=== PATIENT | female | born 1995 | race Caucasian/White ===

== ENCOUNTER 2021-05-22 08:19 | Emergency (ER) | payer BC, OTHER ==
[~2021-05-22] VITALS: Ht 152.4 cm; Wt 54.0 kg
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
[2021-05-22] MEDS ORDERED: HALOPERIDOL LACTATE INJ 5 MG/ML VIAL ONE (08:37)
[2021-05-22] MEDS ORDERED: diphenhydrAMINE HCL 50 MG/ML VIAL ONE (08:37)
[2021-05-22] MEDS ORDERED: LORAZEPAM INJ 2 MG/ML VIAL ONE (08:38)
[2021-05-22 09:00] LABS: BASOPHILS # (AUTO) 0.1 K/uL (0.0-0.2); BASOPHILS % (AUTO) 0.6 % (0.0-2.0); EOSINOPHILS % (AUTO) 0.6 % (0.0-6.0); HEMATOCRIT 35 % (33-45); HEMOGLOBIN 11.1 g/dL (11.5-14.8); LYMPHOCYTES # (AUTO) 3.1 K/uL (0.8-4.8); LYMPHOCYTES % (AUTO) 21.6 % (20.0-44.0); MEAN CORPUSCULAR HGB CONC 32 g/dl (31.0-36.0); MEAN CORPUSCULAR VOLUME 83 fL (82-100); MONOCYTES # (AUTO) 1.2 K/uL (0.1-1.30); MONOCYTES % (AUTO) 8.2 % (2.0-12.0); NEUTROPHILS # (AUTO) 9.9 K/uL (1.8-8.9); PLATELET COUNT (AUTO) 628 K/uL (150-450); RED BLOOD CELL COUNT(AUTO) 4.26 MIL/uL (4.0-5.2); WHITE BLOOD COUNT (AUTO) 14.3 K/uL (4.3-11.0)
[2021-05-22] MEDS ORDERED: IV NS 0.9% 500 ML BAG IV ONE (09:00)
[2021-05-22] MEDS ORDERED: diphenhydrAMINE HCL 50 MG/ML VIAL IM ONE (09:00)
[2021-05-22] MEDS ORDERED: LORAZEPAM INJ 2 MG/ML VIAL IM ONE (09:00)
[2021-05-22] MEDS ORDERED: HALOPERIDOL LACTATE INJ 5 MG/ML VIAL IM ONE (09:00)
[2021-05-22 09:18] LABS: CALCIUM, SERUM 9.7 mg/dL (8.5-10.1); CARBON DIOXIDE 23 mmol/L (21-32); CHLORIDE 104 mmol/L (98-107); CREATININE 0.7 mg/dL (0.6-1.3); GLUCOSE 91 mg/dL (74-106); POTASSIUM 4.2 mmol/L (3.5-5.1); SODIUM SERUM 138 mmol/L (136-145); UREA NITROGEN, BLOOD 41 mg/dL (7-18)
[2021-05-22 09:31] LABS: ALANINE AMINOTRANSFERASE 19 U/L (12-78); ALBUMIN 3.9 g/dL (3.4-5.0); ALCOHOL, BLOOD < 3 mg/dL (0-0); ALKALINE PHOSPHATASE 86 U/L (46-116); ASPARTATE AMINOTRANSFERASE 30 U/L (15-37); BILIRUBIN,DIRECT 0.1 mg/dL (0.0-0.2); BILIRUBIN,TOTAL 0.3 mg/dL (0.2-1.0); TOTAL PROTEIN, SERUM 8.5 g/dL (6.4-8.2)
[2021-05-22 09:38] LABS: ACETAMINOPHEN 0 ug/ml (10-30)
[2021-05-22 09:49] LABS: BILIRUBIN,URINE NEGATIVE (NEGATIVE); COLOR,URINE YELLOW (YELLOW); LEUKOCYTE ESTERASE ,URINE NEGATIVE (NEGATIVE); NITRITE, URINE NEGATIVE (NEGATIVE); PH,URINE 5.5 (5.0-8.0); PROTEIN,URINE NEGATIVE (NEGATIVE); UGLUCOSE NEGATIVE (NEGATIVE); UROBILINOGEN,URINE 0.2 EU/dL (0.2)
[2021-05-22 10:29] LABS: BACTERIA,URINE None seen /HPF (None Seen); RBC,URINE 0-2 /HPF (0-2); SQUAMOUS EPITHELIAL CELL,UR None Seen /HPF (None Seen); WBC,URINE 0-2 /HPF (0-3)
[2021-05-22 10:30] LABS: URIC ACID CRYSTALS,URINE Many /HPF (None Seen)
--- NOTE | 2021-05-22 13:00 | NUR ---
PATIENT IS ASLEEP AT MOMENT BREATHING SPONTANEOUSLY SATURATING AT 99% RA
--- NOTE | 2021-05-22 19:00 | NUR ---
PATIENT IS SLEEPING BUT AROUSABLE. STILL WITH RESTRAINTS. VITALS CHECKED.
--- NOTE | 2021-05-23 02:04 | NUR ---
pt woke up, still yelling and screaming. pt then went back to sleep
--- NOTE | 2021-05-23 02:49 | NUR ---
pt awoken able to have a conversation w/ patient. pt was provided with food and water. restraints taken off d/t pt is calm and cooperative. pt denied suicidal nor homicidal ideation. pt is still drowsy.
--- NOTE | 2021-05-23 05:34 | NUR ---
Patient discharged to home in stable condition. Written and verbal after care instructions given. Patient verbalizes understanding of instruction.IV removed. Catheter intact and site benign. Pressure and 4x4 applied to site. No bleeding noted. Pt ambulatory with a steady gait
[2021-05-23 06:00] VITALS: BP 107/62
== END 2021-05-23 05:35 | disposition home or self-care (01) ==
LOC: ER 08:21
DX: F15.10 Other stimulant abuse, uncomplicated (principal)
CPT/HCPCS: 36415; 80048; 80076; 80143; 80307; 80320; 81001; 82550; 85025; 96372 ×2; 99285; J1200; J1630; J2060; J7030; G0480